=== PATIENT | male | born 2000 | race Caucasian/White ===

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

== ENCOUNTER 2021-12-09 01:25 | Emergency (ER) | payer OTHER ==
[2021-12-09 01:50] VITALS: BP 112/73; PULSE 80; RESP 20; TEMP 98.1; BMI 32.3
== END 2021-12-09 04:26 | disposition left against medical advice (07) ==
LOC: JER 01:25
DX: Z04.1 Encounter for examination and observation following transport accident (principal)
CPT/HCPCS: 99281-25

== ENCOUNTER 2023-10-11 07:54 | Emergency (ER) | payer OTHER ==
[2023-10-11 08:00] VITALS: BP 113/72; PULSE 87; RESP 20; TEMP 98.3; BMI 27.3
[2023-10-11] MEDS ORDERED: DOXYCYCLINE HYCLATE 100 MG CAPSULE PO ONE (09:37)
[2023-10-11 09:40] LABS: EPI CELLS 0 /uL (0-25.1); HYALINE CASTS 2 /uL (0-3.1); URINE APPEARANCE CLEAR; URINE BACTERIA 22 /uL (0-1359); URINE BILIRUBIN NEGATIVE (NEGATIVE); URINE COLOR YELLOW; URINE GLUCOSE (UA) NEGATIVE (NEGATIVE); URINE KETONE NEGATIVE (NEGATIVE); URINE LEUK ESTERASE 2+ (NEGATIVE); URINE NITRITE NEGATIVE (NEGATIVE); URINE PROTEIN NEGATIVE (NEGATIVE); URINE RBC 145 /uL (0-23.9); URINE UROBILINOGEN 0.2 mg/dL (0.2-1.0); URINE WBC 670 /uL (0-25.8)
[2023-10-11] MEDS: DOXYCYCLINE HYCLATE 100 MG CAPSULE PO ONE (10:20)
[2023-10-11 12:14] LABS: SYPHILIS W/ RPR CONF NON-REACTIVE (NONREACTIVE)
[2023-10-11 12:43] LABS: HIV INTERPRETATION NEGATIVE (NEGATIVE)
== END 2023-10-11 10:37 | disposition home or self-care (01) ==
LOC: JERFT 07:54 → JER 07:54 → JERFT 10:37
DX: R36.9 Urethral discharge, unspecified (principal); Z20.2 Contact with and (suspected) exposure to infections with a predominantly sexual mode of transmission
CPT/HCPCS: 36415; 81003; 86704; 86780; 86803; 87086; 87340; 87389; 87491; 87517; 87591; 87661; 99284-25